=== PATIENT | female | born 1990 | race Caucasian/White ===

== ENCOUNTER 2018-05-18 17:16 | Emergency (ER) | payer SELFPAY ==
--- NOTE | 2018-05-18 18:15 | ED ---
Abdominal Pain/Female - HPI Summary HPI Summary: diarrhea, crampy abdominal pain for the last several days, without fever, without vomiting - History of Current Complaint Chief Complaint: UCGI Stated Complaint: DIARRHEA, AND CRAMPING Time Seen by Provider: 05/18/18 18:02 Hx Obtained From: Patient Hx Last Menstrual Period: 2 WEEKS AGO ?: No Onset/Duration: Gradual Onset, Lasting Days Timing: Constant Pain Intensity: 7 Location: Diffuse Radiates: No Character: Cramping Allergies/Adverse Reactions: Allergies Allergy/AdvReac Type Severity Reaction Status Date / Time No Known Allergies Allergy Verified 05/18/18 17:58 Home Medications: Home Medications Acetaminophen TAB* [Tylenol TAB*] 650 mg PO ONCE PRN 05/18/18 [History Confirmed 05/18/18] Etonogestrel [Nexplanon] 68 mg IMPLANT 05/18/18 [History] PMH/Surg Hx/FS Hx/Imm Hx Previously Healthy: Yes - Surgical History Surgery Procedure, Year, and Place: , APPENDECTOMY, WISDOM TEETH, TONSILLECTOMY Infectious Disease History: No Infectious Disease History: Denies: Traveled Outside the [place] in Last 30 Days - Social History Alcohol Use: None Substance Use Type: Reports: None Smoking Status (MU): Current Every Day Smoker Type: Cigarettes Amount Used/How Often: 1/2 PPD Review of Systems Constitutional: Negative Eyes: Negative ENT: Negative Cardiovascular: Negative Respiratory: Negative Positive: Diarrhea Genitourinary: Negative Musculoskeletal: Negative All Other Systems Reviewed And Are Negative: Yes Physical Exam Triage Information Reviewed: Yes Vital Signs On Initial Exam: Initial Vitals Temp Pulse Resp BP Pulse Ox 37.3 C 117 18 127/78 99 05/18/18 17:53 05/18/18 17:53 05/18/18 17:53 05/18/18 17:53 05/18/18 17:53 Vital Signs Reviewed: Yes Appearance: Positive: Well-Appearing Skin: Positive: Warm Eyes: Positive: Normal ENT: Positive: Normal ENT inspection Respiratory/Lung Sounds: Positive: Clear to Auscultation Cardiovascular: Positive: Normal Abdomen Description: Positive: Nontender Diagnostics - Vital Signs Vital Signs Temp Pulse Resp BP Pulse Ox 05/18/18 17:53 37.3 C 117 18 127/78 99 - Laboratory Lab Statement: Any lab studies that have been ordered have been reviewed, and results considered in the medical decision making process. Abdominal Pain Fem Course/Dx - Diagnoses Provider Diagnoses: Gastroenteritis Discharge - Sign-Out/Discharge Documenting (check all that apply): Patient Departure All imaging exams completed and their final reports reviewed: No Studies - Discharge Plan Condition: Good Disposition: HOME Patient Education Materials: Gastroenteritis (ED) Referrals: Tricia Marcano PA [Primary Care Provider] - Additional Instructions: clear liquids until diarrhea is resolved - Billing Disposition and Condition Condition: GOOD Disposition: Home
[2018-05-18 18:30] VITALS: BP 138/79
--- NOTE | 2018-05-20 12:51 | UC ---
- Progress Note Progress Note: + Salmonella species on culture. Please advise her of the result. Reviewing her H+P from the 18, there would be no indication for using antibiotic treatment. Reasons for using antibiotics include fever, persistent abdominal pain, or having more than 10 stools per day, dehydration (Typically treat if the person is ill enough to hospitalize). Ensure good hydration. Course/Dx - Diagnoses Provider Diagnoses: Gastroenteritis Discharge - Sign-Out/Discharge Documenting (check all that apply): Patient Departure All imaging exams completed and their final reports reviewed: No Studies - Discharge Plan Condition: Good Disposition: HOME Patient Education Materials: Gastroenteritis (ED) Referrals: Tricia Marcano PA [Primary Care Provider] - Additional Instructions: clear liquids until diarrhea is resolved - Billing Disposition and Condition Condition: GOOD Disposition: Home
--- NOTE | 2018-05-21 15:49 | UC ---
- Progress Note Progress Note: Patient had positive salmonella result on 05/20/2018 and was notified of result. Fecal lactoferrin also returned positive suggesting inflammation of the bowel which is consistent with the diagnosis of Salmonella. Shiga toxin 1&2 negative, Cryptosporidium/Giardia negative. No change in plan of care from previous instructions. Course/Dx - Diagnoses Provider Diagnoses: Gastroenteritis Discharge - Sign-Out/Discharge Documenting (check all that apply): Post-Discharge Follow Up All imaging exams completed and their final reports reviewed: No Studies - Discharge Plan Condition: Good Disposition: HOME Prescriptions: Azithromycin TAB* [Zithromax TAB (Z-ELEANOR) 250 mg #6 tabs] 4 tab PO .TODAY, THEN 2 DAILY #14 tab Patient Education Materials: Gastroenteritis (ED) Referrals: Tricia Marcano PA [Primary Care Provider] - Additional Instructions: clear liquids until diarrhea is resolved - Billing Disposition and Condition Condition: GOOD Disposition: Home
== END 2018-05-18 18:54 | disposition home or self-care (01) ==
LOC: UCEAST 17:16
DX: K52.9 Noninfective gastroenteritis and colitis, unspecified (principal); F17.210 Nicotine dependence, cigarettes, uncomplicated
CPT/HCPCS: 83630; 87045; 87046; 87077; 87328; 87329; 87899; 99202; G0463

== ENCOUNTER 2018-09-03 11:53 | Emergency (ER) | payer OTHER ==
--- OUTSIDE RECORDS SUMMARY | 2018-09-03 12:03 | XMS REPORT | Continuity of Care Document ---
:1990 External Reference #:[id number] Author Name Caitie Richards NP Address [address] [place] [id number] Care Team Providers Name Role Phone Tricia Marcano PA Primary Care Physician Unavailable Payers Date Identification Numbers Payment Provider Subscriber Effective: 2017 Policy Number: [id number] [facility] Fide Acuña Group Name: [employer] [address] PayID: [id number] [place] [address] Policy Number: [id number] Medicaid -Su Acuña PayID: [id number] [address] [place] [address] Expires: 2016 Policy Number: [id number] Kevin Acuña PayID: [id number] [address] [address] [place] [address] Advance Directives Description No Information Available Problems Date Description Provider Status Onset: 06/19/2014 Asthma Reggie Paidlla NP Active Family History Date Family Member(s) Observation Comments Father Unknown Mother Alive Social History Type Date Description Comments Sex Female Education Highest level completed, 1 year of college Marital Status Legal Status: Never Work Status Full-Time Employment at [employer] Tobacco Use Reviewed: Never Smoked Cigars 05/02/18 Tobacco Use Reviewed: Never Smoked A Pipe 05/02/18 Smoking Status Reviewed: Never Smoked A Pipe 05/02/18 Tobacco Use Reviewed: Never Used Smokeless 05/02/18 Tobacco ETOH Use Has consumed alcohol in the past Recreational Drug Use Teaching provided regarding Naloxone/Narcan Training Available At [facility] Tobacco Use Reviewed: Light tobacco smoker (10 05/02/18 or fewer cigarettes/day) Recreational Drug Use Formerly used Marijuana regularly Recreational Drug Use Formerly used Cocaine lara also, last used 2+ sporadically years ago, shared straws with boyfriend of that time Tattoo/Piercing Tattoo completed professionally Sun Exposure Uses sunscreen occasionally. Always uses seat belt. Currently Active Patient is currently sexually active Last [place] 1 day ago Condom Use Never Contraceptive Methods Past methods include depo-provera injection Contraceptive Methods Past methods include oral contraceptives Contraceptive Methods Past methods include since 08/2014 levonorgestrel IUD Age 1st [place] 17 Years Old # Partners in a 2 over the past year. 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 Never E-Cigarette user JYOTI: Estimated Date of Based on LMP 01/28/2018 Delivery Allergies, Adverse Reactions, Alerts Date Description Reaction Status Severity Comments 06/12/2014 NKDA Active 06/12/2014 Seasonal Active Medications Medication Date Status Form Strength Qnty SIG Indications Ordering Provider Metronidazole 07/30/ Active Tablets 500mg 4tabs take 4 tabs A59.01 In [facility] 2019 all at once MD Yahir Nexplanon 05/02/ Active Implant 68mg 1unit insert as Z30.017 In [facility] 2019 s directed MD Yahir Albuterol / Active Unknown Sulfate 0000 Valtrex 06/08/ Hx Tablets 1gm 5tabs one tab by Susan Jurado 2018 - mouth once a Anastacianer, 07/30/ day x 5 days [employer] 2019 as needed Fluconazole 06/06/ Hx Tablets 150mg 2tabs one tab B37.3 In [facility] 2019 - today and MD Yahir August repeat 2019 in 10 days if still symptomatic Plan B One-Step 10/27/ Hx Tablets 1.5mg 1 tab by Z30.40 In [facility] 2016 - mouth now MD Yahir 2018 Metronidazole 10/27/ Hx Tablets 500mg 14tab 1 tab by Z11.3 In [facility] 2015 - s mouth 2 MD Yahir 05/02/ times per 2019 day for 7 days for vaginosis caused by bacteria Metronidazole 12/03/ Hx Tablets 500mg 14tab 1 tab by 616.10 Reggie 2014 - s mouth twice Padilla, 05/02/ a day [employer] 2018 Valtrex 12/03/ Hx Tablets 500mg 6tabs 1 by mouth 054.11 Reggie 2014 - twice a day Padilla, 05/02/ for 3 days [employer]OUS[employer] 2018 Acyclovir 07/29/ Hx Capsules 200mg 50cap 1 5x/day for 054.10 [facility] 2014 - s 10 days Padilla, 05/02/ [employer]OUS[employer] 2018 Metronidazole 06/19/ Hx Tablets 500mg 14tab 1 twice a 616.10 Reggie 2014 - s day by mouth Padilla, 11/27/ x 7 days [employer] 2014 Ortho-Cyclen 06/19/ Hx Tablets 0.25-35mg- 28tab 1 by mouth V72.31 [facility] (28) 2014 - mcg s every day Padilla, 11/27/ [employer]OUS[employer] 2014 Plan B 06/19/ Hx Tablets 0.75mg 1tabs 1 by mouth V72.31 [facility] 2014 - as needed. Padilla, HOUSING COUNSELOR 2018 Advair Diskus / Hx Unknown 0000 - 2018 Singulair / Hx Unknown 0000 - 2018 Medications Administered in Office Medication Date Status Form Strength Qnty SIG Indications Ordering Provider Nexplanon Device 05/02/ Administered Injection Caitie 2018 GRETEL Richards Contraceptive 06/19/ Administered Injection Reggie Pills 2014 GRETEL Padilla Control Emergency 06/19/ Administered Injection Reggie Contraceptive 2014 GRETEL Padilla Emergency 05/21/ Administered Injection Altaf, Contraceptive 2014 Emili, RN Immunizations Description No Information Available Vital Signs Date Vital Result Comment 07/30/2018 10:09am BP Systolic Recheck 167 mmHg BP Diastolic Recheck 87 mmHg Height 64 inches 5'4" Weight 277.00 lb BMI (Body Mass Index) 47.5 kg/m2 05/02/2018 1:01pm BP Systolic 124 mmHg post nexplanon insertion BP Diastolic 70 mmHg post nexplanon insertion 05/02/2018 12:06pm BP Systolic 137 mmHg electronic BP Diastolic 86 mmHg electronic BP Systolic Recheck 118 mmHg manual BP Diastolic Recheck 70 mmHg manual Height 64 inches 5'4" Weight 263.00 lb BMI (Body Mass Index) 45.1 kg/m2 05/31/2017 4:28pm BP Systolic 124 mmHg BP Diastolic 70 mmHg 10/28/2015 9:20am BP Systolic 120 mmHg BP Diastolic 72 mmHg Height 64.5 inches 5'4.50" Weight 201.00 lb BMI (Body Mass Index) 34.0 kg/m2 Last Menstrual Period [id number] 12/03/2014 2:41pm BP Systolic 120 mmHg BP Diastolic 80 mmHg Height 64.5 inches 5'4.50" Weight 198.00 lb BMI (Body Mass Index) 33.5 kg/m2 11/26/2014 12:55pm BP Systolic 118 mmHg BP Diastolic 80 mmHg Height 64.5 inches 5'4.50" Weight 198.00 lb BMI (Body Mass Index) 33.5 kg/m2 Last Menstrual Period [id number] 06/19/2014 12:53pm BP Systolic 110 mmHg BP Diastolic 80 mmHg Height 64.5 inches 5'4.50" Weight 194.00 lb BMI (Body Mass Index) 32.8 kg/m2 Last Menstrual Period [id number] 06/19/2014 4:52pm BP Systolic 124 mmHg BP Diastolic 76 mmHg Height 64.5 inches 5'4.50" Weight 194.00 lb BMI (Body Mass Index) 32.8 kg/m2 Last Menstrual Period [id number] Results Test Date Facility Test Result H/L Range Note Wet Prep.... 07/30/2018 [facility] WBC Smear several Clue Cells Vag Fluid Wet Prep neg Marilee Wet Prep neg Lactobacillus Wet Prep neg Whiff Wet Prep pos Bacteria Wet Prep na PH Wet Prep 6 Misc Other Test Pos Trich Chlamydia/Neiserria 07/30/2018 [facility].Trachomatis Not Detected Not Detected Gonorrhoe Tma Throat Tma,Throat N.Gonorrhoeae Tma,Throat Not Detected Not Detected 1 Chlamydia/N 07/30/[address] [facility] [address],Rna,Tma,Urogenital NOT DETECTED Not Detected 2 Gonorroeae Rna Tma Urogenit GC Rna,Tma,Urogen NOT DETECTED Not Detected 3 Thinprep Pap Jailer Chief W/RFX HPV HR 07/30/2018 [facility] Results SEE NOTE Abnormal 4 Wet Prep.... 06/13/2018 [facility] WBC Smear neg Clue Cells Vag Fluid Wet Prep neg Marilee Wet Prep pos Lactobacillus Wet Prep neg Whiff Wet Prep neg Bacteria Wet Prep na PH Wet Prep 4.5 Misc Other Test no tric Chlamydia/N 06/06/[address] [facility] [address],Rna,Tma,Urogenital NOT DETECTED Not Detected 5 Gonorroeae Rna Tma Urogenit GC Rna,Tma,Urogen NOT DETECTED Not Detected 6 Culture,Urine,Voided 06/06/2018 [facility] URINE-URINE Organism #1 SEE NOTE 7 Organism #2 SEE NOTE 8 Urinalysis DIP Only.... 06/06/2018 [facility] Urine Leukocyte Esterase QN ++ Urine Nitrite QN n Urine Blood ++ non hem Urine PH 5 Urine Protein Random + Urine Ketone Random tr Urine Glucose QN Random n Laboratory test finding 06/06/2018 [facility] HIV Rapid... non reactive Hep C Rapid Test non reactive Chlamydia/N 05/02/[address] [facility] [address],Rna,Tma,Urogenital NOT DETECTED Not Detected 9 Gonorroeae Rna Tma Urogenit GC Rna,Tma,Urogen NOT DETECTED Not Detected 10 Laboratory test finding 05/02/2018 [facility] HGB Blood.... 14.3 Test Urine..... negative Laboratory test finding 05/31/2017 [facility] Test Urine..... positive Laboratory test finding 10/28/2015 [facility] Test Urine..... neg Wet Prep.... 10/28/2015 [facility] WBC Smear neg Clue Cells Vag Fluid Wet Prep many Marilee Wet Prep neg Lactobacillus Wet Prep neg Whiff Wet Prep pos Bacteria Wet Prep NA PH Wet Prep 6 Misc Other Test no trich Chlam 10/28/2015 [facility] C.Trachomatis NOT DETECTED Not Detected 11 Trach/Neisseria Rna,Tma Gonorroeae Rna Tma N.Gonorrhoeae Rna,Tma NOT DETECTED Not Detected 12 Urinalysis DIP Only.... 10/28/2015 [facility] Urine Leukocyte Esterase QN neg Urine Nitrite QN neg Urine Blood neg Urine PH 6.0 Urine Protein Random neg Urine Ketone Random neg Urine Glucose QN Random neg Urinalysis DIP Only.... 12/03/2014 [facility] Urine Leukocyte Esterase QN N Urine Nitrite QN N Urine Blood + Urine PH 6.5 Urine Protein Random N Urine Ketone Random N Urine Glucose QN Random N Wet Prep.... 12/03/2014 [facility] WBC Smear 5-6 Clue Cells Vag Fluid Wet Prep + Marilee Wet Prep _ Lactobacillus Wet Prep _ Whiff Wet Prep + Bacteria Wet Prep + PH Wet Prep 5.0 Misc Other Test _ Herpes Simplex Virus Culture W/RFX Type 11/26/2014 [facility] GENITAL- VULVAR HSV Culture ISOLATED Abnormal Not Isolated Wet Prep.... 11/26/2014 [facility] WBC Smear 8-9 Clue Cells Vag Fluid Wet Prep + Marilee Wet Prep _ Lactobacillus Wet Prep _ Whiff Wet Prep + Bacteria Wet Prep + PH Wet Prep 5.0 Misc Other Test _ Laboratory test finding 11/26/2014 [facility] Test Urine..... negative Urinalysis DIP Only.... 11/26/2014 [facility] Urine Leukocyte Esterase QN + Urine Nitrite QN _ Urine Blood +++ Urine PH 6.5 Urine Protein Random ++ Urine Ketone Random + Urine Glucose QN Random _ Chlam 11/26/2014 [facility] C.Trachomatis NOT DETECTED Not Detected 13 Trach/Neisseria Rna,Tma Gonorroeae Rna Tma N.Gonorrhoeae Rna,Tma NOT DETECTED Not Detected 14 Laboratory test 11/26/2014 [facility] HSV 2 Igg 4.28 High 15 finding Herpeselect AB Laboratory test 11/26/2014 [facility] RPR W/Titer and NON-REACTIVE Non- Reactive 16 finding Conf RFX Laboratory test 11/26/2014 [facility] HSV Type 2 ISOLATED Abnormal Not Isolated 17 finding Laboratory test 06/23/2014 [facility] Thinprep(R) Tis neg 18 finding W/RFL HPV Mrna E6/E7 Chlam 06/21/2014 [facility] C.Trachomatis NOT DETECTED Not Detected 19 Trach/Neisseria Rna,Tma Gonorroeae Rna Tma N.Gonorrhoeae Rna,Tma NOT DETECTED Not Detected 20 Wet Prep.... 06/19/2014 [facility] WBC Smear 6-8 Clue Cells Vag Fluid Wet Prep + Marilee Wet Prep - Lactobacillus Wet Prep - Whiff Wet Prep + Bacteria Wet Prep + PH Wet Prep 5.0 Su Annual Lab Set 06/19/2014 [facility] HGB Blood.... 13.2 Urinalysis DIP Only.... 06/19/2014 [facility] Urine Protein Random N Urine Glucose QN Random N Laboratory test finding 06/19/2014 [facility] Test Urine..... neg HIV Rapid... negative 1 This test was performed using the APTIMA COMBO2(R) Assay (GEN-PROBE(R)). The performance characteristics of this assay have been determined by [facility]. Performance characteristics refer to the analytical performance of the test. 2 This test was performed using the APTIMA COMBO2(R) Assay (GEN-PROBE(R). The analytical performance characteristics of this assay, when used to test SurePath(R) specimens have been determined by [facility]. 3 This test was performed using the APTIMA COMBO2(R) Assay (GEN-PROBE(R). The analytical performance characteristics of this assay, when used to test SurePath(R) specimens have been determined by [facility]. 4 GYNECOLOGICAL CYTOLOGY REPORT Thinprep TIS PAP w/rfx to HPV E6/E7 REPORT STATUS: FINAL CLINICAL INFORMATION: Information not provided LMP: 07/30/2018 SLIDES / SOURCE: 1 / Cervix STATEMENT OF ADEQUACY: Satisfactory for evaluation. Endocervical/transformation zone component present. GENERAL CATEGORIZATION: EPITHELIAL CELL ABNORMALITY INTERPRETATION/RESULT: Atypical Squamous Cells of Undetermined Significance (ASC-US) Trichomonas vaginalis identified. COMMENT: This Pap test has been evaluated with computer assisted technology. RADIOLOGY RECEPTIONIST: ADELIA SHANKS(ASCP) For informational Purposes: All cytology specimens are processed and screened at [facility]. [address] [place] [id number] PATHOLOGIST: Sierra Dumont M.D. Board Certified in Anatomic and Clinical Pathology (electronic signature) For questions regarding this report call Anatomic Pathology at [phone] The Pap is a screening test for cervical cancer. It is not a diagnostic test and is subject to false negative and false positive results. It is most reliable when a satisfactory sample, regularly obtained, is submitted with relevant clinical findings and history, and when the Pap result is evaluated along with historic and current clinical information. HPV mRNA E6/E7 HPV mRNA E6E7 Detected REFERENCE RANGE: NOT DETECTED This test was performed using the APTIMA HPV Assay ([employer] This assay detects E6/E7 viral messenger RNA (mRNA) from 14 high-risk HPV types (16,18,31,33,35,39,45,51,52,56,58,59,66,68). For more information on the limitations of this test, visit: [email or web address] 5 This test was performed using the APTIMA COMBO2(R) Assay ([employer](R). The analytical performance characteristics of this assay, when used to test SurePath(R) specimens have been determined by [facility]. 6 This test was performed using the APTIMA COMBO2(R) Assay (GEN-PROBE(R). The analytical performance characteristics of this assay, when used to test SurePath(R) specimens have been determined by [facility]. 7 GROUP B STREPTOCOCCUS 10,000 - 50,000 CFU/ML BETA-HEMOLYTIC STREPTOCOCCI ARE PREDICTABLY SUSCEPTIBLE TO PENICILLIN AND OTHER BETA-LACTAMS. SUSCEPTIBILITY TESTING NOT ROUTINELY PERFORMED. ANY AMOUNT OF GROUP B STREPTOCOCCUS IN URINE SPECIMENS OBTAINED FROM FEMALES IS A MARKER OF GENITAL TRACT COLONIZATION. IF THIS PATIENT IS , PLEASE REFER TO ACOG GUIDELINES FOR APPROPRIATE SCREENING AND MANAGEMENT OF WOMEN. 8 ADDITIONAL ORGANISM(S) LESS THAN 10,000 CFU/ML ISOLATED. THESE ORGANISMS, COMMONLY FOUND ON EXTERNAL AND INTERNAL GENITALIA, ARE CONSIDERED COLONIZERS. NO FURTHER TESTING PERFORMED. 9 This test was performed using the APTIMA COMBO2(R) Assay (GEN-PROBE(R). The analytical performance characteristics of this assay, when used to test SurePath(R) specimens have been determined by [facility]. 10 This test was performed using the APTIMA COMBO2(R) Assay (GEN-PROBE(R). The analytical performance characteristics of this assay, when used to test SurePath(R) specimens have been determined by [facility]. 11 This test was performed using the APTIMA COMBO2(R) Assay (GEN-PROBE(R). The analytical performance characteristics of this assay, when used to test SurePath(R) specimens have been determined by [facility]. 12 This test was performed using the APTIMA COMBO2(R) Assay (GEN-PROBE(R). The analytical performance characteristics of this assay, when used to test SurePath(R) specimens have been determined by [facility]. 13 This test was performed using the APTIMA COMBO2(R) Assay (GEN-PROBE(R). The analytical performance characteristics of this assay, when used to test SurePath(R) specimens have been determined by [facility]. 14 This test was performed using the APTIMA COMBO2(R) Assay (GEN-PROBE(R). The analytical performance characteristics of this assay, when used to test SurePath(R) specimens have been determined by [facility]. 15 INDEX INTERPRETATION ----- LESS THAN 0.90 NEGATIVE FOR ANTIBODIES TO HSV-2 IGG 0.90 - 1.10 EQUIVOCAL GREATER THAN 1.10 POSITIVE This assay utilizes recombinant type-specific antigens to differentiate HSV-1 from HSV-2 infections. A positive result cannot distinguish between recent and past infection. If recent HSV infection is suspected but the results are negative or equivocal, the assay should be repeated in 4-6 weeks. The performance characteristics of the assay have not been established for pediatric populations, immunocompromised patients or screening. 16 The RPR is a bqr-xymcaxndez-wfszwthf test; therefore a treponemal-specific confirmatory test should be performed unless prior syphilis infection has been documented for the patient. 17 HSV Type 1 testing not performed. The incidence of HSV Type 1 infection in the presence of HSV type 2 (dual infection) is extremely rare. 18 GYNECOLOGICAL CYTOLOGY REPORT Thinprep TIS PAP w/rfx to HPV E6/E7 REPORT STATUS: FINAL CLINICAL INFORMATION: Information not provided LMP: 06/12/14 SLIDES / SOURCE: 1 / Cervix, Endocervix STATEMENT OF ADEQUACY: Satisfactory for evaluation. Endocervical/transformation zone component present. INTERPRETATION/RESULT: Negative for intraepithelial lesion or malignancy. COMMENT: This Pap test has been evaluated with computer assisted technology. RADIOLOGY RECEPTIONIST: ADELIA TELLO(ASCP) For informational purposes: All cytology specimens are processed at [facility]. [address] [place] [address] No collection date was received. We have used the date the specimen was received by [facility] as the collection date. If this is incorrect, please contact us at [phone]. 19 This test was performed using the APTIMA COMBO2(R) Assay (GEN-PROBE(R). The analytical performance characteristics of this assay, when used to test SurePath(R) specimens have been determined by [facility]. 20 This test was performed using the APTIMA COMBO2(R) Assay (GEN-PROBE(R). The analytical performance characteristics of this assay, when used to test SurePath(R) specimens have been determined by [facility]. No collection date was received. We have used the date the specimen was received by [facility] as the collection date. If this is incorrect, please contact us at . Procedures Date Code Description Status 05/02/2018 91514 Insertion, Non-Biodegradable Drug Delivery Implant Completed Encounters Description No Information Available Plan of Treatment 07/30/2018 - Caitie Richards, NPZ01.419 Encounter for gynecological examination ( general) (routine)Comments:Reviewed healthy diet, exercise and safety with patient who states understanding.Counseled on Preventive , STI Awareness, Seat Belt Use, and Self Breast ExamFollow up:F/u in one year for annual. Sooner prn any concerns.Z11.3 Encounter for screening for infections with a vewqnqpvmprvlH39.46 Encounter for surveillance of implantable subdermal hmbdzavrQ10.4 Encounter for screening for malignant neoplasm of stngnwL95.10 Unspecified jnzwsgqpshhL63.01 Trichomonal vulvovaginitisNew Medication: Metronidazole 500 mg - take 4 tabs all at onceComments:Abstain from intercourse for 7 days after treatment and no sex with partners until they have been treated and waited the 7 days after treatment.Follow up:PRNR63.5 Abnormal weight gainNew Labs:TSH & Free T4, Ordered: 07/30/18E66.09 Other obesity due to excess caloriesComments:Discussed tracking calories through [employer] to determine how much she is actually taking in and goal is 1800 calories / day. Try to incorporate physical activity vmnfwZ25.9 Encounter for screening, hbyxrrsiedwF05.200 Nicotine dependence, unspecified, uncomplicated
[2018-09-03 12:14] VITALS: BP 118/73
--- NOTE | 2018-09-03 12:23 | UC ---
UC General HPI - HPI Summary HPI Summary: pt c/o abscess L groin x 4 days. drained a large amount on own today. hx similar spots but smaller. no fever, DM or MRSA. - History of Current Complaint Chief Complaint: TAkin Stated Complaint: BOIL ON LT THIGH Time Seen by Provider: 09/03/18 12:13 Hx Obtained From: Patient Hx Last Menstrual Period: nexplanon Onset/Duration: Gradual Onset Timing: Constant Pain Intensity: 5 Associated Signs & Symptoms: Negative: Abdominal Pain - Allergy/Home Medications Allergies/Adverse Reactions: Allergies Allergy/AdvReac Type Severity Reaction Status Date / Time No Known Allergies Allergy Verified 09/03/18 12:05 Home Medications: Home Medications Ibuprofen TAB* [Motrin TAB* 800 MG] 1,000 mg PO ONCE PRN 09/03/18 [History Confirmed 09/03/18] PMH/Surg Hx/FS Hx/Imm Hx Previously Healthy: Yes - Surgical History Surgical History: Yes Surgery Procedure, Year, and Place: , APPENDECTOMY, WISDOM TEETH, TONSILLECTOMY - Family History Known Family History: Positive: Non-Contributory - Social History Lives: With Family Alcohol Use: None Substance Use Type: None Smoking Status (MU): Current Every Day Smoker Type: Cigarettes Amount Used/How Often: 1/2 PPD Review of Systems All Other Systems Reviewed And Are Negative: Yes Constitutional: Negative: Fever Skin: Positive: Rash Physical Exam Triage Information Reviewed: Yes Appearance: Well-Appearing Vital Signs: Initial Vital Signs Temp 97.6 F 09/03/18 12:07 Pulse 74 09/03/18 12:07 Resp 18 09/03/18 12:07 BP 118/73 09/03/18 12:07 Pulse Ox 99 09/03/18 12:07 Vital Signs Reviewed: Yes Eyes: Positive: Conjunctiva Clear Respiratory: Positive: Lungs clear Cardiovascular: Positive: RRR Abdomen Description: Positive: Nontender Musculoskeletal: Positive: ROM Intact Neurological: Positive: Alert Psychological: Positive: Age Appropriate Behavior Skin Exam: Normal Skin: Positive: Rashes - 3" area with mild erythema, induration and tenderness just superior to crease of L groin. small area in center appears to have opened. No active drained. Superficial adenopathy not appreciated. Course/Dx - Course Course Of Treatment: PROCEDURE BY THIS PROVIDER: time out done. left groin area prep with betadine. superficial linear local with 30g needle and 2ml 1% lidocaine. Tip of #11 blade used to make a superficial stab incision. no active drainage, culture obtained. site irrigated with sterile water. small iodoform gauze packing placed. area covered with sterile gauze and held with 2 small pieces of paper tape. only scant bleeding during procedure that stopped immediately.pt tolerated well. mild cellulitis around site thus will tx with bactrim to cover possible MRSA. pt request to f/u Dr Rucker because his is a family friend. - Diagnoses Provider Diagnosis: Abscess, Cellulitis Discharge - Sign-Out/Discharge Documenting (check all that apply): Patient Departure All imaging exams completed and their final reports reviewed: No Studies - Discharge Plan Condition: Stable Disposition: HOME Prescriptions: Sulfamethox/Trimethoprim DS* [Bactrim DS 800/160 TAB*] 1 tab PO BID 7 Days #14 tab Patient Education Materials: Abscess Incision and Drainage (DC) Referrals: Stephan Lopez [Medical Doctor] - 2 Days Additional Instructions: FOLLOW UP SURGERY IN 2 DAYS FOR RECHECK OR SOONER IF WORSE. RETURN HERE IF UNABLE TO SEE SURGEON. - Billing Disposition and Condition Condition: STABLE Disposition: Home
[2018-09-03] MEDS ORDERED: Lidocaine 1%* 5 ML VIAL INJ ONE (12:24)
--- NOTE | 2018-09-06 07:10 | UC ---
- Progress Note Progress Note: wound MRSA eg Normal joe 1+ no change chenchoj 09/06/18 Course/Dx - Diagnoses Provider Diagnoses: Abscess, Cellulitis Discharge - Sign-Out/Discharge Documenting (check all that apply): Post-Discharge Follow Up All imaging exams completed and their final reports reviewed: No Studies - Discharge Plan Condition: Stable Disposition: HOME Prescriptions: Sulfamethox/Trimethoprim DS* [Bactrim DS 800/160 TAB*] 1 tab PO BID 7 Days #14 tab Patient Education Materials: Abscess Incision and Drainage (DC) Referrals: Stephan Lopez [Medical Doctor] - 2 Days Additional Instructions: FOLLOW UP SURGERY IN 2 DAYS FOR RECHECK OR SOONER IF WORSE. RETURN HERE IF UNABLE TO SEE SURGEON. - Billing Disposition and Condition Condition: STABLE Disposition: Home
== END 2018-09-03 13:17 | disposition home or self-care (01) ==
LOC: UCCORT 11:53
DX: L02.416 Cutaneous abscess of left lower limb (principal); L03.116 Cellulitis of left lower limb; F17.210 Nicotine dependence, cigarettes, uncomplicated
CPT/HCPCS: 10060; 87070; 87205; 87640; 87641; 99212; G0463

== ENCOUNTER 2019-04-27 13:39 | Emergency (ER) | payer OTHER ==
[2019-04-27 14:44] VITALS: BP 159/86
--- NOTE | 2019-04-27 15:15 | ED ---
Laceration/Wound HPI - HPI Summary HPI Summary: This patient is a 28-year-old female who presents to the ED with a 0.5 cm laceration to the left palmar second hand from a utility knife. She states she moderate amount of blood loss prior to arrival, however now the bleeding has subsided. Currently not bleeding. Pt denies pain. Tetanus UTD. - History of Current Complaint Stated Complaint: LACERATION TO HAND PER PT Time Seen by Provider: 04/27/19 13:54 Hx Obtained From: Patient Hx Last Menstrual Period: nexplanon Mechanism of Injury: Sharp/Blunt Trauma Onset/Duration: Sudden Onset Aggravating: Movement Alleviating: Compression Timing: Constant Onset Severity: Mild Current Severity: None Pain Intensity: 3 Pain Scale Used: 0-10 Numeric Associated Signs & Symptoms: Negative - Allergy/Home Medications Allergies/Adverse Reactions: Allergies Allergy/AdvReac Type Severity Reaction Status Date / Time No Known Allergies Allergy Verified 04/27/19 13:43 PMH/Surg Hx/FS Hx/Imm Hx Previously Healthy: Yes Respiratory History: Reports: Hx Asthma - Surgical History Surgery Procedure, Year, and Place: , APPENDECTOMY, WISDOM TEETH, TONSILLECTOMY - Immunization History Hx Pertussis Vaccination: No Immunizations Up to Date: Yes Infectious Disease History: No Infectious Disease History: Denies: Traveled Outside the [place] in Last 30 Days - Family History Known Family History: Positive: Non-Contributory - Social History Occupation: Employed Full-time Lives: With Family Alcohol Use: None Substance Use Type: Reports: None Smoking Status (MU): Light Every Day Tobacco Smoker Type: Cigarettes Amount Used/How Often: 1/2 PPD Review of Systems Negative: Fever, Chills, Fatigue, Skin Diaphoresis Negative: Palpitations, Chest Pain Genitourinary: Negative Positive: no symptoms reported, see HPI Negative: Arthralgia, Myalgia Positive: Other - small .5cm superifical laceration Neurological: Negative All Other Systems Reviewed And Are Negative: Yes Physical Exam Triage Information Reviewed: Yes Vital Signs On Initial Exam: Initial Vitals Temp Pulse Resp BP Pulse Ox 96.7 F 86 18 136/82 96 04/27/19 13:41 04/27/19 13:41 04/27/19 13:41 04/27/19 13:41 04/27/19 13:41 Vital Signs Reviewed: Yes Appearance: Positive: Well-Appearing, Well-Nourished Skin: Positive: Warm, Skin Color Reflects Adequate Perfusion, Other - small laceration Head/Face: Positive: Normal Head/Face Inspection Neck: Positive: Supple, No Lymphadenopathy Respiratory/Lung Sounds: Positive: Clear to Auscultation Cardiovascular: Positive: Pulses are Symmetrical in both Upper and Lower Extremities Neurological: Positive: Speech Normal Psychiatric: Positive: Normal Procedures - Sedation Patient Received Moderate/Deep Sedation with Procedure: No Diagnostics - Vital Signs Vital Signs Temp Pulse Resp BP Pulse Ox 04/27/19 14:42 98.5 F 95 16 159/86 97 04/27/19 13:41 96.7 F 86 18 136/82 96 - Laboratory Lab Statement: Any lab studies that have been ordered have been reviewed, and results considered in the medical decision making process. Laceration Repair Course/Dx - Course Course Of Treatment: Patient has a 0.5 cm very superficial laceration to the L bloom side of the hand. This area is not bleeding at this time. They're superficial. Adhesive applied. 2 Steri-Strips applied. Patient's tetanus is up-to-date. - Clinical Impression Provider Diagnoses: Laceration Discharge ED - Sign-Out/Discharge Documenting (check all that apply): Patient Departure - Discharge Plan Condition: Stable Disposition: HOME Patient Education Materials: Skin Adhesive Care (ED), Steristrips (ED) Referrals: Tricia Marcano PA [Primary Care Provider] - Additional Instructions: Keep it out of water as much as possible - Billing Disposition and Condition Condition: STABLE Disposition: Home - Attestation Statements Provider Attestation: I was available for consultation for this patient. I did not evaluate the patient or participate in any medical decision making or disposition decisions unless I am specifically named in the chart as having consulted on the patient. If I have consulted on the patient, please see my own ED note on the patient encounter. Sarmad Mcghee MD
== END 2019-04-27 14:43 | disposition home or self-care (01) ==
LOC: ED 13:39
DX: S61.412A Laceration without foreign body of left hand, initial encounter (principal); W26.0XXA Contact with knife, initial encounter; Y92.9 Unspecified place or not applicable; J45.909 Unspecified asthma, uncomplicated; F17.210 Nicotine dependence, cigarettes, uncomplicated; Z90.89 Acquired absence of other organs
CPT/HCPCS: 99282